=== PATIENT | female | born 1955 | race Caucasian/White ===

== ENCOUNTER 2016-07-16 18:38 | Emergency (ER) | payer OTHER, SELFPAY ==
[2016-07-16 19:01] LABS: BASOPHIL 0.4 % (0-2); EOSINOPHIL 4.2 % (0-5); HCT 49.2 % (37.0-47.0); HGB 16.7 g/dl (12.5-16.0); LYMPHOCYTE 33.2 % (15-48); MCH 31.3 pg (25.0-31.0); MCHC 33.9 g/dL (32.0-36.0); MCV 92.1 fL (78.0-100.0); MONOCYTE 6.2 % (0-12); MPV 10.7 fL (6.0-9.5); PLT 310 K/uL (150-400); RBC 5.34 M/uL (4.20-5.40); RDW 13.3 % (11.5-14.0); WBC 10.2 K/uL (4.0-10.5)
[2016-07-16 19:08] LABS: INR 1.05 (0.9-1.2); PROTHROMBIN TIME 13.3 SECONDS (11.7-14.0); PTT 25.4 SECONDS (23.2-31.4)
[2016-07-16 19:16] LABS: ALBUMIN 4.6 g/dL (3.4-4.8); BILIRUBIN - TOTAL 0.4 mg/dL (0.1-1.0); CREATININE 0.6 mg/dL (0.5-1.0); GLOBULIN (CALCULATION) 3.4 g/dL (2.2-4.2); MAGNESIUM 1.96 mg/dL (1.40-2.10); POTASSIUM 3.9 mmol/L (3.5-5.1)
[2016-07-16 19:19] LABS: CKMB 1.62 ng/mL (0.97-4.94); MYOGLOBIN 24 ng/mL (26-65); PRO-BNP 119 pg/mL (0-125); TROPONIN T < 0.010 ng/mL
[2016-07-16 21:16] LABS: BILIRUBIN NEGATIVE (NEGATIVE); BLOOD NEGATIVE Ery/uL (NEGATIVE); CLARITY CLEAR (CLEAR); COLOR YELLOW (YELLOW); GLUCOSE (U) NORMAL (NORMAL); KETONE (U) NEGATIVE (NEGATIVE); LEUKOCYTES NEGATIVE Leu/uL (NEGATIVE); NITRITE NEGATIVE (NEGATIVE); PROTEIN NEGATIVE (NEGATIVE); SPECIFIC GRAVITY <=1.005 (1.001-1.030); UROBILINOGEN 0.2 mg/dL (0.2-1.0)
== END 2016-07-17 | disposition home or self-care (01) ==
LOC: FER 18:38
PROVIDERS: Emergency Medicine Emergency Medical Services; Internal Medicine
DX: I48.91 Unspecified atrial fibrillation (principal); I50.9 Heart failure, unspecified; J44.9 Chronic obstructive pulmonary disease, unspecified; Z79.82 Long term (current) use of aspirin; Z79.51 Long term (current) use of inhaled steroids; Z79.899 Other long term (current) drug therapy
CPT/HCPCS: 36415; 71010; 71275; 80053; 80198; 81003; 82550; 82553; 83735; 83874; 83880; 84443; 84484; 85025; 85379; 85610; 85730; 93005; 96372; J1940; Q9967

== ENCOUNTER 2020-11-24 13:40 | Emergency (ER) | payer OTHER ==
[2020-11-24 14:41] LABS: BILIRUBIN NEGATIVE (NEGATIVE); BLOOD NEGATIVE Ery/uL (NEGATIVE); CLARITY CLEAR (CLEAR); COLOR YELLOW (YELLOW); GLUCOSE (U) NORMAL (NORMAL); LEUKOCYTES NEGATIVE Leu/uL (NEGATIVE); NITRITE NEGATIVE (NEGATIVE); PROTEIN NEGATIVE (NEGATIVE); SPECIFIC GRAVITY 1.015 (1.001-1.030); UROBILINOGEN 0.2 mg/dL (0.2-1.0)
[2020-11-24 15:11] LABS: BASOPHIL 1.1 % (0-2); EOSINOPHIL 5.5 % (0-7); HCT 42.1 % (37.0-47.0); HGB 11.9 g/dl (12.5-16.0); MCHC 28.3 g/dL (32.0-36.0); MCV 92.1 fL (78.0-100.0); MONOCYTE 6.8 % (0-12); MPV 12.1 fL (6.0-9.5); NEUTROPHIL 73.2 % (41-80); NRBC 0; PLT 294 K/uL (150-400); RBC 4.57 M/uL (4.20-5.40); RDW 17.4 % (11.5-14.0); WBC 8.6 K/uL (4.0-10.5)
[2020-11-24 15:21] LABS: ALBUMIN 3.2 g/dL (3.4-5.0); BILIRUBIN - TOTAL 0.6 mg/dL (0.2-1.0); BUN/CREAT RATIO (CALC) 19.1 RATIO; CREATININE 0.47 mg/dL (0.51-0.95); POTASSIUM 3.9 mmol/L (3.5-5.1); TOTAL PROTEIN 7.2 g/dL (6.4-8.2)
[2020-11-24] MEDS ORDERED: MEDROL 4MG DOSEP4 MG PO (18:07)
== END 2020-11-24 19:55 | disposition home or self-care (01) ==
LOC: FER 13:40
PROVIDERS: Emergency Medicine
DX: R06.00 Dyspnea, unspecified (principal); I10 Essential (primary) hypertension; E11.9 Type 2 diabetes mellitus without complications; I48.91 Unspecified atrial fibrillation; J44.9 Chronic obstructive pulmonary disease, unspecified; E66.01 Morbid (severe) obesity due to excess calories; Z20.822 Contact with and (suspected) exposure to COVID-19
CPT/HCPCS: 36415; 36600; 71045; 80053; 81003; 82803; 84484; 85025; 93005; J2930; U0002

== ENCOUNTER 2021-06-18 10:56 | Emergency (ER) | payer OTHER ==
[~2021-06-18 10:56] MED LIST: MEDROL 4MG DOSEP4 MG PO
[2021-06-18 12:45] LABS: BILIRUBIN NEGATIVE (NEGATIVE); BLOOD NEGATIVE Ery/uL (NEGATIVE); CLARITY CLEAR (CLEAR); COLOR YELLOW (YELLOW); GLUCOSE (U) NORMAL (NORMAL); LEUKOCYTES 1+ Leu/uL (NEGATIVE); NITRITE POSITIVE (NEGATIVE); PROTEIN NEGATIVE (NEGATIVE); UROBILINOGEN 0.2 mg/dL (0.2-1.0); pH 6.5 (5.0-9.0)
[2021-06-18 13:00] LABS: BASOPHIL 0.8 % (0-2); EOSINOPHIL 2.5 % (0-7); HCT 47.2 % (37.0-47.0); MCH 29.8 pg (25.0-31.0); MCHC 31.8 g/dL (32.0-36.0); MCV 93.8 fL (78.0-100.0); MONOCYTE 4.9 % (0-12); MPV 11.6 fL (6.0-9.5); NEUTROPHIL 80.4 % (41-80); NRBC 0; PLT 317 K/uL (150-400); RBC 5.03 M/uL (4.20-5.40); WBC 10.7 K/uL (4.0-10.5)
[2021-06-18 13:15] LABS: BACTERIA 3+
[2021-06-18 13:17] LABS: SQUAMOUS EPITHELIAL CELLS RARE
[2021-06-18 13:18] LABS: URINARY WBC RARE
[2021-06-18 13:31] LABS: BUN/CREAT RATIO (CALC) 15.1 RATIO; CREATININE 0.53 mg/dL (0.51-0.95); POTASSIUM 3.9 mmol/L (3.5-5.1)
--- NOTE | 2021-06-19 12:08 | NUR ---
DAUGHTER ARRIVED TO HOSPITAL TODAY WITH CONCERNS REGARDING PATIENT BEING SENT HOME ON ORAL ANTIBIOTICS WHEN SHE WAS TOLD BY THE PCP THAT ORAL ANTIBIOTICS WOULD NOT WORK. THE PCP ASSUMED THE PATIENT WOULD BE ADMITED FOR IV ANTIBIOTICS. DISCUSSED A PLAN WITH THE DAUGHTER AND PATIENT. WILL PROVIDE COPIES OF ED VISIT FROM 06/18/21 FOR PATIENT TO GIVE TO PCP AND UROLOGIST AT NEXT VISIT. MEDICAL RELEASE SIGNED. DAUGHTER AND PATIENT WAS ENCOURAGED TO CONTINUE PRESCRIBED MEDICATIONS AND CONTACT PCP FOR FOLLOW UP PLAN REGARDING POSSIBLE OUTPATIENT IV ANTIBIOTIC TREATMENT OPTIONS. DAUGHTER AND PATIENT VERBALIZED UNDERSTANDING OF PLAN.
== END 2021-06-18 15:42 | disposition home or self-care (01) ==
LOC: FER 10:56
PROVIDERS: Nurse Practitioner Family
DX: N39.0 Urinary tract infection, site not specified (principal); E11.9 Type 2 diabetes mellitus without complications; J44.9 Chronic obstructive pulmonary disease, unspecified; Z87.891 Personal history of nicotine dependence; Z79.84 Long term (current) use of oral hypoglycemic drugs; Z79.4 Long term (current) use of insulin
CPT/HCPCS: 36415; 80048; 81001; 85025; 87076; 87088; 87186; 99283